=== PATIENT | male | born 1975 | race Caucasian/White ===

== ENCOUNTER 2018-01-23 13:02 | Inpatient (IN) | payer MEDICAID, SELFPAY ==
[2018-01-23] VITALS (10 sets, daily range): BP systolic 138–155; BP diastolic 76–101; PULSE 50–123; RESP 16–20; TEMP 36.6–36.8; O2SAT 97–98; BMI 27.3; BMI 26.6; BMI 26.7
[2018-01-23] MEDS: 0.9% Normal Saline 1,000 ML 250 ML IV (14:22)
[2018-01-23] MEDS: LORazepam 2 MG/ML Syringe 1 MG IV (14:24)
[2018-01-23] MEDS: Ondansetron 4 MG/2 ML Vial IV (14:24)
[2018-01-23 14:42] LABS: Absolute Lymphocyte Count 2.05 X10^3/ul (0.83-4.51); Absolute Neutrophil Count 4.8 X10^3/uL (2.0-7.7); Basophil# 0.01 X10^3/uL; Basophil% 0.1 % (0-1); Eosinophil# 0.08 X10^3/uL; Eosinophils% 1.1 % (0-5); Hematocrit 39.5 % (40-54); Hemoglobin 14.1 g/dl (13.0-16.5); Lymphocyte # 2.05 X10^3/ul (4.0); Lymphocyte % 28.1 % (19-41); Mean Corp Hgb Conc 35.7 g/gl (32-36); Mean Corpuscular Hgb 32.8 pg (27.0-32.0); Mean Corpuscular Volume 91.9 fL (80-94); Mean Platelet Vol. 10.9 fl (6.2-12.0); Monocyte% 4.1 % (0-10); Neutrophil # 4.84 X10^3/uL (2.7-7.7); Neutrophil % 66.5 % (47-70); POSITIVE COUNT NO; POSITIVE DIFFERENTIAL NO; POSITIVE MORPHOLOGY NO; Platelet Count 185 K/mm3 (150-450); RBC Distribution Width CV 13.3 % (11.6-14.6); RBC Distribution Width SD 44.8 fl (35.1-43.9); White Blood Count 7.3 K/mm3 (4.4-11.0)
[2018-01-23 15:05] LABS: Anion Gap 13 (5-15); BUN 1 mg/dL (7-18); BUN/Creat Ratio 1.8 RATIO (10-20); Calcium,Total 8.3 mg/dL (8.5-10.1); Chloride 92 mmol/L (98-107); Creatinine, Serum 0.54 mg/dL (0.70-1.30); EST Glomerular Filtration Rate 176 mL/min (>60); Est Glom Filt Rate - Afr Amer 213 mL/min (>60); Glucose 84 mg/dL (74-106); Potassium 3.9 mmol/L (3.5-5.1); Sodium Level 130 mmol/L (136-145)
[2018-01-23 15:28] LABS: Amphetamine Urine VISTA NEGATIVE (<1000 ng/mL); Barbiturate Urine VISTA NEGATIVE (< 200 ng/mL); Benzodiazepine Urine VISTA NEGATIVE (< 200 ng/mL); Cocaine Urine VISTA NEGATIVE (< 300 ng/mL); Ecstacy Urine VISTA NEGATIVE (< 500 ng/mL); Methadone Urine VISTA NEGATIVE (< 300 ng/mL); PCP Urine VISTA NEGATIVE (< 25 ng/mL); THC Urine VISTA NEGATIVE (< 50 ng/mL); Vista UDS pH Range 6
--- NOTE | 2018-01-23 16:58 | ED.VISSUMM ---
- ER Visit Summary Date of Service: 01/23/18 Chief Complaint: Alcohol detox History of Present Illness: The patient is a 43 M with history of heavy alcohol use who presents requesting alcohol detox. Patient has been looking in [place] and [place] for a detox center and he and his family state that he spoke with Pratima yesterday from [facility], who told him that he could come be admitted for that program. Patient last drank approximately 8 hours prior to arrival and is complaining of nausea, vomiting, tremors, anxiety, fullness and pressure in his head. He denies any history of withdrawal seizures. He attempted detox 1 year ago. He normally drinks 15-30 beers daily. He denies any suicidal ideation. He denies any other substance use. He does use tobacco. Physical Examination: Vital signs: afebrile, hypertension and tachycardia, no hypoxia on room air General: well nourished, well developed, being in bed, no distress but appears anxious Skin: warm, moist palms, no rash, no pallor HEENT: normocephalic and atraumatic; PERRL, EOMI, moist mucous membranes Cardiovascular: Tachycardic rate and rhythm without murmurs, no peripheral edema, 2+ pulses all distal extremities Respiratory: No increased work of breathing, lungs are clear to auscultation bilaterally, no rales, rhonchi or wheezing Abdominal: Abdomen is soft, nontender with normoactive bowel sounds, no guarding or rebound, no masses MSK: Moves all extremities, no deformities, normal strength in the hands tremulous on extension Neuro: Awake and alert, oriented ?4. No facial droop, sensation and motor function intact and symmetric Test Results: Abnormal Lab Results 01/23/18 01/23/18 01/23/18 14:17 14:17 14:17 WBC 7.3 RBC 4.30 L Hgb 14.1 Hct 39.5 L MCV 91.9 MCH 32.8 H MCHC 35.7 RDW 13.3 RDW Differential 44.8 H Plt Count 185 MPV 10.9 Immature Gran % (Auto) 0.100 Neut % (Auto) 66.5 Lymph % (Auto) 28.1 [place] % (Auto) 4.1 Eos % (Auto) 1.1 Baso % (Auto) 0.1 Absolute Neuts (auto) 4.8 Absolute Lymphs (auto) 2.05 Total Counted Not Reportable Sodium 130 L Potassium 3.9 Chloride 92 L Carbon Dioxide 25.0 Anion Gap 13 BUN 1 L Creatinine 0.54 L Estim Creat Clear Calc 195.60 Est GFR (MDRD) Af Amer 213 Est GFR (MDRD) Non-Af 176 BUN/Creatinine Ratio 1.8 L Glucose 84 Calcium 8.3 L Urine Opiates Screen Urine Methadone Screen Ur Barbiturates Screen Ur Phencyclidine Scrn Ur Amphetamines Screen U Methamphetamin-MDMA U Benzodiazepines Scrn Urine Cocaine Screen U Cannabinoids Screen Ur Drug Screen Comment Ethyl Alcohol 150.0 01/23/18 14:24 WBC RBC Hgb Hct MCV MCH MCHC RDW RDW Differential Plt Count MPV Immature Gran % (Auto) Neut % (Auto) Lymph % (Auto) [place] % (Auto) Eos % (Auto) Baso % (Auto) Absolute Neuts (auto) Absolute Lymphs (auto) Total Counted Sodium Potassium Chloride Carbon Dioxide Anion Gap BUN Creatinine Estim Creat Clear Calc Est GFR (MDRD) Af Amer Est GFR (MDRD) Non-Af BUN/Creatinine Ratio Glucose Calcium Urine Opiates Screen NEGATIVE Urine Methadone Screen NEGATIVE Ur Barbiturates Screen NEGATIVE Ur Phencyclidine Scrn NEGATIVE Ur Amphetamines Screen NEGATIVE U Methamphetamin-MDMA NEGATIVE U Benzodiazepines Scrn NEGATIVE Urine Cocaine Screen NEGATIVE U Cannabinoids Screen NEGATIVE Ur Drug Screen Comment Ethyl Alcohol Emergency Department Course and Treatment: Patient has a CIWA of 23. He was given IV hydration, Ativan and Zofran for symptomatic relief. He had some improvement in his symptoms. Screening labs were performed showing an ethanol level of 145. Tox screen negative. Patient had mild hyponatremia 130. Otherwise labs unremarkable. Patient was discussed with the hospitalist for admission for symptomatic control and alcohol detox in the [facility]. Treatment Plan: [] Disposition: [] Impression:: Medical screening for alcohol detox; acute alcohol withdrawal This note was generated with [employer] dictation software. It may contain incorrect words, spelling, and punctuation that were not noted in review of the chart prior to signing ED Disposition - Plan for ED Patient: Chief Complaint: Subst Abuse Referrals: Care Physician,No Primary [Primary Care Provider] -
--- NOTE | 2018-01-23 17:02 | HP.PCM_ITS ---
Problem List (1) ETOH abuse Status: Acute (2) Tobacco use Status: Acute (3) Overweight (BMI 25.0-29.9) Status: Acute (4) Acute alcohol withdrawal Status: Acute (5) Hyponatremia Status: Acute History of Present Illness Date of Admission: 01/23/18 Chief Complaint: Acute EtOH Withdrawal The patient is a 43 y/o M w/ PMHx: Tobacco use (1.5-2 ppd), EtOH Abuse (15-30 cans beer per day) who presents to the [facility] on 01/23/18 w/ noted acute EtOH withdrawal, onset starting mid-day following last EtOH intake 01/23/18 AM with onset of nausea, tremors, agitation, tactile disturbances. Patient interested in attaining sober status. In the ED work-up included T 98.3, HR 123-->92, BP 144/91, RR 18, 98% on RA, CBC unremarkable, BMP Na 130, Chl 92, BUN/Cr 1/0.54, glucose 84, UDS negative, EtOH level 150. In the ED patient initial CIWA per ED physician 23. Patient notes sxs improvement following IV ativan administration. Patient and family present noted that he had called [facility] and had been directed to come for treatment. The ED physician noted completing the chart for [facility] admission and only irregular was insurance but patient and family noted they were directed per [facility], giving correct names, to come for treatment. Past Medical History Allergies No Known Allergies Allergy (Verified 01/23/18 13:03) Home Medications: Ambulatory Orders Medication Instructions Recorded NK [NK] 01/23/18 Smoking Status: Current every day smoker Review of Systems Constitutional: Reports: Anorexia, Malaise, Weakness, Fatigue. Denies: Chills, Fever, Weight Change HEENT: Denies: Head Aches, Sinus Congestion, Sinus Drainage Cardiovascular: Denies: Chest Pain, Palpitations Respiratory: Denies: Cough, Shortness of breath at rest, Sputum production Gastrointestinal: Reports: Nausea. Denies: Abdominal Pain, Vomiting Genitourinary: Denies: Dysuria Musculoskeletal: Denies: Joint Pain, Joint Tenderness Skin: Denies: Rash, Wounds Neurological: Reports: Tremor. Denies: Focal weakness, Numbness, Tingling Psychiatric: Reports: Depression, - - Tactile disturbances.. Denies: Anxiety, Homicidal Ideations, Suicidal Ideations Hematologic/ Lymphatic: Denies: Easy Bruising, Easy Bleeding VTE Information - Inpt Only VTE Present on Admission: No VTE Mechan Device Prophylaxis: SCD's VTE Pharm Prophylaxis ordered?: No Reason prophylaxis not ordered:: Treatment Not Indicated Patient Problems: Active and Suspected Problems ETOH abuse (Acute) Tobacco use (Acute) Overweight (BMI 25.0-29.9) (Acute) Acute alcohol withdrawal (Acute) Hyponatremia (Acute) Subjective: Seated upright in the ED bed, currently appears improved from initial ED report , recent ativan administration. Objective: Physical Examination: General: awake, alert, oriented x 3 and cooperative, seated upright in the ED bed in no apparent distress. Skin: normal color, turgor, no icterus, cyanosis. HEENT: AT/NC, EOMI, PERRLA, mildly dry MM, no carotid bruits or JVD noted, mild BL scleral injection noted. Lungs: CTA bilaterally, moderate effort, mild decrease BL bases, no rales, ronchi or wheezing. Heart: Regular rate and rhythm; no gallop, rub audible. Abdomen: soft, overweight, NTTP, ND, normal BS, mild HM. Extremities: no cyanosis, clubbing, or edema. Neurological: patient awake, alert, oriented x 3; cognitive function intact; pupils equally reactive to light and accomodation; cranial nerves II-XII grossly normal, moving all 4 extremities, no focal deficits, strength mildly globally decreased secondary to acute presentation, no current tremors apparent. Psychiatric: affect appears flat, fatigued, no acute evidence of depressive or anxiety feelings. - Physical Exam Vital Signs Temp Pulse Resp BP Pulse Ox 98.3 F 100 18 139/92 H 98 01/23/18 13:03 01/23/18 16:00 01/23/18 16:00 01/23/18 16:00 01/23/18 16:00 Oxygen Delivery Method Room Air Weight: 201 lb 11.567 oz Body Mass Index (BMI) 27.3 Laboratory Tests Past 24 Hrs 01/23/18 01/23/18 01/23/18 14:17 14:17 14:17 WBC 7.3 RBC 4.30 L Hgb 14.1 Hct 39.5 L MCV 91.9 MCH 32.8 H MCHC 35.7 RDW 13.3 RDW Differential 44.8 H Plt Count 185 MPV 10.9 Immature Gran % (Auto) 0.100 Neut % (Auto) 66.5 Lymph % (Auto) 28.1 [place] % (Auto) 4.1 Eos % (Auto) 1.1 Baso % (Auto) 0.1 Absolute Neuts (auto) 4.8 Absolute Lymphs (auto) 2.05 Total Counted Not Reportable Sodium 130 L Potassium 3.9 Chloride 92 L Carbon Dioxide 25.0 Anion Gap 13 BUN 1 L Creatinine 0.54 L Estim Creat Clear Calc 195.60 Est GFR (MDRD) Af Amer 213 Est GFR (MDRD) Non-Af 176 BUN/Creatinine Ratio 1.8 L Glucose 84 Calcium 8.3 L Urine Opiates Screen Urine Methadone Screen Ur Barbiturates Screen Ur Phencyclidine Scrn Ur Amphetamines Screen U Methamphetamin-MDMA U Benzodiazepines Scrn Urine Cocaine Screen U Cannabinoids Screen Ur Drug Screen Comment Ethyl Alcohol 150.0 01/23/18 14:24 WBC RBC Hgb Hct MCV MCH MCHC RDW RDW Differential Plt Count MPV Immature Gran % (Auto) Neut % (Auto) Lymph % (Auto) [place] % (Auto) Eos % (Auto) Baso % (Auto) Absolute Neuts (auto) Absolute Lymphs (auto) Total Counted Sodium Potassium Chloride Carbon Dioxide Anion Gap BUN Creatinine Estim Creat Clear Calc Est GFR (MDRD) Af Amer Est GFR (MDRD) Non-Af BUN/Creatinine Ratio Glucose Calcium Urine Opiates Screen NEGATIVE Urine Methadone Screen NEGATIVE Ur Barbiturates Screen NEGATIVE Ur Phencyclidine Scrn NEGATIVE Ur Amphetamines Screen NEGATIVE U Methamphetamin-MDMA NEGATIVE U Benzodiazepines Scrn NEGATIVE Urine Cocaine Screen NEGATIVE U Cannabinoids Screen NEGATIVE Ur Drug Screen Comment Ethyl Alcohol Assessment/Plan Active and Suspected Problems ETOH abuse (Acute) Tobacco use (Acute) Overweight (BMI 25.0-29.9) (Acute) Acute alcohol withdrawal (Acute) Hyponatremia (Acute) The patient is a 43 y/o M w/ PMHx: Tobacco use (1.5-2 ppd), EtOH Abuse (15-30 cans beer per day) who presents to the [facility] on 01/23/18 w/ noted acute EtOH withdrawal, onset starting mid-day following last EtOH intake 01/23/18 AM with onset of nausea, tremors, agitation, tactile disturbances. (1) Acute EtOH Withdrawal: Will admit to [facility] on telemetry, obtain routine labs including CBC, CMP, urine for drug screen, urinalysis, serum lipase, routine EKG and will initiate and continue on [facility] service protocol with taper course of ativan, as needed Seroquel, Catapres, Bentyl, Vistaril, IV fluids, IV antiemetics, Tylenol as needed for pain. Once patient clinically improved and completion of taper nearing will plan [facility] assistance for transition to next level of rehabilitation care. Mag, phos pending. Maintain on CIWA protocol. (2) Elevated BP without HTN Dx: Elevated BP upon ED presentation, will continue treatment of #1 and if remains above goal will initiate oral therapy, PRN hydralazine. (3) Hyponatremia, Suspected Chronic: Likely secondary to EtOH Abuse, beer potomania, gently hydrating as noted x 1L and then HLIV. (4) Tobacco Abuse: Encouraged cessation, inpatient consultation per RT, NR if desired. (5) Insomnia: q HS trazodone, melatonin and PRN q 6 hour seroquel as noted above. (6) GERD: Famotidine. (7) DVT Prophylaxis: EILEEN, low risk, ambulation. Code Visit Inpatient E&M: 15078 Init Hosp L3
--- NOTE | 2018-01-23 17:02 | ED.DCSUM_ITS ---
- ER Visit Summary Date of Service: 01/23/18 Chief Complaint: Alcohol detox History of Present Illness: The patient is a 43 M with history of heavy alcohol use who presents requesting alcohol detox. Patient has been looking in [place] and [place] for a detox center and he and his family state that he spoke with Pratima yesterday from [facility], who told him that he could come be admitted for that program. Patient last drank approximately 8 hours prior to arrival and is complaining of nausea, vomiting, tremors, anxiety, fullness and pressure in his head. He denies any history of withdrawal seizures. He attempted detox 1 year ago. He normally drinks 15-30 beers daily. He denies any suicidal ideation. He denies any other substance use. He does use tobacco. Physical Examination: Vital signs: afebrile, hypertension and tachycardia, no hypoxia on room air General: well nourished, well developed, being in bed, no distress but appears anxious Skin: warm, moist palms, no rash, no pallor HEENT: normocephalic and atraumatic; PERRL, EOMI, moist mucous membranes Cardiovascular: Tachycardic rate and rhythm without murmurs, no peripheral edema , 2+ pulses all distal extremities Respiratory: No increased work of breathing, lungs are clear to auscultation bilaterally, no rales, rhonchi or wheezing Abdominal: Abdomen is soft, nontender with normoactive bowel sounds, no guarding or rebound, no masses MSK: Moves all extremities, no deformities, normal strength in the hands tremulous on extension Neuro: Awake and alert, oriented ?4. No facial droop, sensation and motor function intact and symmetric Test Results: Abnormal Lab Results 01/23/18 01/23/18 01/23/18 14:17 14:17 14:17 WBC 7.3 RBC 4.30 L Hgb 14.1 Hct 39.5 L MCV 91.9 MCH 32.8 H MCHC 35.7 RDW 13.3 RDW Differential 44.8 H Plt Count 185 MPV 10.9 Immature Gran % (Auto) 0.100 Neut % (Auto) 66.5 Lymph % (Auto) 28.1 [place] % (Auto) 4.1 Eos % (Auto) 1.1 Baso % (Auto) 0.1 Absolute Neuts (auto) 4.8 Absolute Lymphs (auto) 2.05 Total Counted Not Reportable Sodium 130 L Potassium 3.9 Chloride 92 L Carbon Dioxide 25.0 Anion Gap 13 BUN 1 L Creatinine 0.54 L Estim Creat Clear Calc 195.60 Est GFR (MDRD) Af Amer 213 Est GFR (MDRD) Non-Af 176 BUN/Creatinine Ratio 1.8 L Glucose 84 Calcium 8.3 L Urine Opiates Screen Urine Methadone Screen Ur Barbiturates Screen Ur Phencyclidine Scrn Ur Amphetamines Screen U Methamphetamin-MDMA U Benzodiazepines Scrn Urine Cocaine Screen U Cannabinoids Screen Ur Drug Screen Comment Ethyl Alcohol 150.0 01/23/18 14:24 WBC RBC Hgb Hct MCV MCH MCHC RDW RDW Differential Plt Count MPV Immature Gran % (Auto) Neut % (Auto) Lymph % (Auto) [place] % (Auto) Eos % (Auto) Baso % (Auto) Absolute Neuts (auto) Absolute Lymphs (auto) Total Counted Sodium Potassium Chloride Carbon Dioxide Anion Gap BUN Creatinine Estim Creat Clear Calc Est GFR (MDRD) Af Amer Est GFR (MDRD) Non-Af BUN/Creatinine Ratio Glucose Calcium Urine Opiates Screen NEGATIVE Urine Methadone Screen NEGATIVE Ur Barbiturates Screen NEGATIVE Ur Phencyclidine Scrn NEGATIVE Ur Amphetamines Screen NEGATIVE U Methamphetamin-MDMA NEGATIVE U Benzodiazepines Scrn NEGATIVE Urine Cocaine Screen NEGATIVE U Cannabinoids Screen NEGATIVE Ur Drug Screen Comment Ethyl Alcohol Emergency Department Course and Treatment: Patient has a CIWA of 23. He was given IV hydration, Ativan and Zofran for symptomatic relief. He had some improvement in his symptoms. Screening labs were performed showing an ethanol level of 145. Tox screen negative. Patient had mild hyponatremia 130. Otherwise labs unremarkable. Patient was discussed with the hospitalist for admission for symptomatic control and alcohol detox in the [facility] program. Treatment Plan: [] Disposition: [] Impression:: Medical screening for alcohol detox; acute alcohol withdrawal This note was generated with [employer] dictation software. It may contain incorrect words, spelling, and punctuation that were not noted in review of the chart prior to signing ED Disposition - Plan for ED Patient: Chief Complaint: Subst Abuse Referrals: Care Physician,No Primary [Primary Care Provider] -
[2018-01-23 18:02] LABS: Magnesium 2.1 mg/dL (1.6-2.6); Phosphorus 3.1 mg/dL (2.5-4.9)
[2018-01-23] MEDS: Ondansetron ODT 4 MG Tablet PO (18:58)
[2018-01-23] MEDS: Methocarbamol 750 MG Tablet PO (18:58)
[2018-01-23] MEDS: Dicyclomine 10 MG Capsule 20 MG PO (18:59)
[2018-01-23] MEDS: QUEtiapine 25 MG Tablet PO (18:59)
[2018-01-23] MEDS: cloNIDine HCl 0.1 MG Tablet PO ×2 (18:59→22:20)
[2018-01-23] MEDS: chlordiazePOXIDE 25 MG Capsule PO (18:59)
[2018-01-23 19:15] LABS: AST(SGOT) 40 U/L (15-37); Alanine Aminotransfer ALT/SGPT 36 U/L (16-61); Albumin, Serum 3.9 g/dL (3.2-5.0); Alkaline Phosphatase 88 U/L (45-117); Bilirubin, Direct 0.11 mg/dL (0.00-0.30); Globulin 4.1 g/dL (2.2-4.2)
[2018-01-23] MEDS: Lactated Ringers 1,000 ML 125 ML IV (20:55)
[2018-01-23] MEDS: MELATONIN 10 MG TABLET PO (22:20)
[2018-01-23] MEDS: traZODone 50 MG Tablet PO (22:20)
[2018-01-23] MEDS: Famotidine 20 MG Tablet PO (22:20)
[2018-01-24] MEDS: chlordiazePOXIDE 25 MG Capsule PO ×4 (00:47→20:14)
[2018-01-24 02:23] VITALS: BP 100/65; PULSE 68; RESP 18; TEMP 36.5
[2018-01-24] MEDS: cloNIDine HCl 0.1 MG Tablet PO ×5 (02:31→17:34)
[2018-01-24 06:34] VITALS: BP 118/75; PULSE 83; RESP 18; TEMP 36.6
--- NOTE | 2018-01-24 07:15 | PN_ITS ---
Patient Problems: Active and Suspected Problems ETOH abuse (Acute) Tobacco use (Acute) Overweight (BMI 25.0-29.9) (Acute) Acute alcohol withdrawal (Acute) Hyponatremia (Acute) Subjective: The patient is a 43 y/o M w/ PMHx: Tobacco use (1.5-2 ppd), EtOH Abuse (15-30 cans beer per day) who presents to the [facility] on 01/23/18 w/ noted acute EtOH withdrawal, onset starting mid-day following last EtOH intake 01/23/18 AM with onset of nausea, tremors, agitation, tactile disturbances. Admitted to [place], initiated and continued on [facility] service protocol with taper course of ativan, as needed Seroquel, Catapres, Bentyl, Vistaril, IV fluids, IV antiemetics, Tylenol as needed for pain. Once patient clinically improved and completion of taper nearing will plan [facility] assistance for transition to next level of rehabilitation care. Mag, phos both normal levels. Maintain on CIWA protocol. Will need [facility] assessment Thursday given admission over the weekend, again, patient and family noted [facility] recommendation to present to [facility] for admission, especially given insurance variation. Elevated BP upon ED presentation, will continue treatment of #1, improved since admission, normal BP , continue to monitor. PRN hydralazine. Hyponatremia, Suspected Chronic, Likely secondary to EtOH Abuse, beer potomania, gently hydrating as noted x 1L and then HLIV. Elevated LFT, Chronic, secondary to ETOH Abuse. Hepatic profile obtained following admission, AST/ALT 40/36, patient reports elevation prior. Patient with no acute events overnight per self and per nursing report. He states he slept well which is the first 90s had sleep and several. He is up in the room moving and organizing things this morning, appearing very comfortable. Notes symptoms have remarkably improved and still feels as though his he has a mild cold but otherwise doing well. patient denies fevers, chills, nausea, emesis, abdominal pain, chest pain or dyspnea. Objective: Physical Examination: General: awake, alert, oriented x 3 and cooperative, seated upright bed in no apparent distress, initially walking in the room. Skin: normal color, turgor, no icterus, cyanosis. HEENT: AT/NC, EOMI, PERRLA, improved MMM. Lungs: CTA bilaterally, moderate effort, mild decrease BL bases, no rales, ronchi or wheezing. Heart: Regular rate and rhythm; no gallop, rub audible. Abdomen: soft, overweight, NTTP, ND, normal BS. Extremities: no cyanosis, clubbing, or edema. Neurological: patient awake, alert, oriented x 3; cognitive function intact; pupils equally reactive to light and accomodation; cranial nerves II-XII grossly normal, moving all 4 extremities, no focal deficits, strength improved, mildly globally decreased. Psychiatric: affect appears improved, normalized, no acute evidence of depressive or anxiety feelings. Vitals/I&O's: Vital Signs Temp Pulse Resp BP Pulse Ox 97.8 F 83 18 118/75 97 01/24/18 06:34 01/24/18 06:34 01/24/18 06:34 01/24/18 06:34 01/23/18 17:10 Oxygen Delivery Method Room Air Weight: 196 lb 13.965 oz Body Mass Index (BMI) 26.6 Intake and Output for Last 24 Hours 01/22/18 01/23/18 01/24/18 23:59 23:59 23:59 Intake Total 200 / 200 Output Total 550 / 550 Balance -350 / -350 Current Medications Acetaminophen (Tylenol) 500 mg PO Q4H PRN PRN PRN Reason: Temp > 100.4 F Al Hydroxide/Mg Hydroxide (Mylanta Ii) 30 ml PO Q6H PRN PRN PRN Reason: dyspesia Bisacodyl (Dulcolax) 10 mg RECTAL DAILY PRN PRN Reason: Constipation Chlordiazepoxide (Librium) 50 mg PO Q6H [facility] PRN Reason: Taper Stop: 01/26/18 19:59 Last Admin: 01/24/18 06:36 Dose: 50 mg Clonidine (Catapres) 0.1 mg PO Q4 TING Last Admin: 01/24/18 06:36 Dose: 0.1 mg Dicyclomine HCl (Bentyl) 20 mg PO Q6H PRN PRN PRN Reason: abdominal discomfort Last Admin: 01/23/18 18:59 Dose: 20 mg Famotidine (Pepcid) 20 mg PO BID [facility] Last Admin: 01/23/18 22:20 Dose: 20 mg Folic Acid (Folic Acid) 1 mg PO DAILY@0800 [facility] Hydralazine HCl (Apresoline) 10 mg IV Q4H PRN PRN PRN Reason: SBP > 160 Hydroxyzine Pamoate (Vistaril) 50 mg PO Q6H PRN PRN PRN Reason: Mild Anxiety (score 1/3) Ibuprofen (Motrin) 600 mg PO Q8H PRN PRN PRN Reason: Mild-Moderate Pain (1-5/10) Loperamide HCl (Imodium) 2 - 4 mg PO UD PRN PRN Reason: LOOSE STOOLS Melatonin (Melatonin) 10 mg PO QHS [facility] Last Admin: 01/23/18 22:20 Dose: 10 mg Methocarbamol (Methocarbamol) 750 mg PO Q6H PRN PRN PRN Reason: Muscle Aches Last Admin: 01/23/18 18:58 Dose: 750 mg Multivitamins/Minerals (Multivitamin With Minerals) [facility] Nicotine Polacrilex ([place] Nicotine (Pbkc)) 4 mg PO Q2H PRN PRN PRN Reason: Nicotine Craving Ondansetron HCl (Zofran Odt) 4 mg PO Q6H PRN PRN PRN Reason: NAUSEA Last Admin: 01/23/18 18:58 Dose: 4 mg Pramipexole Dihydrochloride (Mirapex) 0.25 mg PO Q12H PRN PRN PRN Reason: Restless legs Quetiapine Fumarate (Seroquel) 25 mg PO Q6H PRN PRN PRN Reason: anxiety, insomnia Last Admin: 01/23/18 18:59 Dose: 25 mg Senna (Senokot) 1 tablet PO QHS PRN PRN Reason: Constipation Sodium Chloride () 5 - 30 ml IV UD PRN PRN Reason: SALINE FLUSH Thiamine HCl (Vitamin B1) [facility] Trazodone HCl (Desyrel) 50 mg PO QHS [facility] Last Admin: 01/23/18 22:20 Dose: 50 mg Assessment/Plan Active and Suspected Problems ETOH abuse (Acute) Tobacco use (Acute) Overweight (BMI 25.0-29.9) (Acute) Acute alcohol withdrawal (Acute) Hyponatremia (Acute) The patient is a 43 y/o M w/ PMHx: Tobacco use (1.5-2 ppd), EtOH Abuse (15-30 cans beer per day) who presents to the [facility] on 01/23/18 w/ noted acute EtOH withdrawal, onset starting mid-day following last EtOH intake 01/23/18 AM with onset of nausea, tremors, agitation, tactile disturbances. (1) Acute EtOH Withdrawal: Admitted to [place], routine labs obtained in the ED, added mag/phos/hepatic profile as not obtained, not marked as noted, initiated and continued on [facility] service protocol with taper course of ativan, as needed Seroquel, Catapres, Bentyl, Vistaril, IV fluids, IV antiemetics, Tylenol as needed for pain. Once patient clinically improved and completion of taper nearing will plan [facility] assistance for transition to next level of rehabilitation care. Mag, phos both normal levels. Maintain on CIWA protocol. Will need [facility] assessment Thursday given admission over the weekend, again, patient and family noted [facility] recommendation to present to [facility] for admission, especially given insurance variation. (2) Elevated BP without HTN Dx: Elevated BP upon ED presentation, will continue treatment of #1, improved since admission, normal BP, continue to monitor. PRN hydralazine. (3) Hyponatremia, Suspected Chronic: Likely secondary to EtOH Abuse, beer potomania, gently hydrating as noted x 1L and then HLIV. (4) Tobacco Abuse: Encouraged cessation, inpatient consultation per RT, NR if desired. (5) Insomnia: q HS trazodone, melatonin and PRN q 6 hour seroquel as noted above. (6) GERD: Famotidine. (7) Elevated LFT, Chronic: Secondary to ETOH Abuse. Hepatic profile obtained following admission, AST/ALT 40/36, patient reports elevation prior. (8) DVT Prophylaxis: EILEEN, low risk, ambulation. Code Visit Inpatient E&M: 89328 Subs Hosp L2
[2018-01-24 08:14] VITALS: BP 113/66; PULSE 89; RESP 18; TEMP 36.7
[2018-01-24] MEDS: Famotidine 20 MG Tablet PO ×2 (08:24→22:12)
[2018-01-24] MEDS: Thiamine Hydrochloride 100 MG Tablet PO (08:24)
[2018-01-24] MEDS: Multivitamins,Ther W-Minerals Tablet 1 TABLET PO (08:24)
[2018-01-24] MEDS: Methocarbamol 750 MG Tablet PO (08:25)
[2018-01-24] MEDS: Folic Acid 1 MG Tablet PO (08:25)
[2018-01-24 11:59] VITALS: BP 112/80; PULSE 66; RESP 18; TEMP 36.3
[2018-01-24] MEDS: QUEtiapine 25 MG Tablet PO (12:09)
[2018-01-24 17:28] VITALS: BP 119/80; PULSE 69; RESP 16; TEMP 36.5
[2018-01-24] MEDS: Pramipexole Di-HCl 0.25 MG Tablet PO (17:34)
[2018-01-24 22:06] VITALS: BP 140/90; PULSE 61; RESP 18; TEMP 36.7
[2018-01-24] MEDS: MELATONIN 10 MG TABLET PO (22:12)
[2018-01-24] MEDS: traZODone 50 MG Tablet PO (22:12)
[2018-01-25] VITALS (9 sets, daily range): BP systolic 125–146; BP diastolic 78–100; PULSE 58–82; RESP 16–18; TEMP 36.3–36.6; O2SAT 98–100
[2018-01-25] MEDS: chlordiazePOXIDE 25 MG Capsule PO (04:03)
[2018-01-25] MEDS: Famotidine 20 MG Tablet PO ×2 (08:28→21:11)
[2018-01-25] MEDS: Folic Acid 1 MG Tablet PO (08:28)
[2018-01-25] MEDS: Thiamine Hydrochloride 100 MG Tablet PO (08:29)
[2018-01-25] MEDS: cloNIDine HCl 0.1 MG Tablet PO ×4 (08:29→21:11)
[2018-01-25] MEDS: Multivitamins,Ther W-Minerals Tablet 1 TABLET PO (08:29)
--- NOTE | 2018-01-25 09:27 | PCM.PN.HOSP ---
Patient Problems: Active and Suspected Problems ETOH abuse (Acute) Tobacco use (Acute) Overweight (BMI 25.0-29.9) (Acute) Acute alcohol withdrawal (Acute) Hyponatremia (Acute) Subjective: Patient was seen and examined. No acute events overnight. Vitals reviewed are stable. Denies any nausea or vomiting or tremors or dizziness or palpitations. Seen by the [facility] program account retention representative. He will be enrolled in the [facility] program. Patient states after discharge he hopes to follow-up with counseling and AA groups. Vitals/I&O's: Vital Signs Temp Pulse Resp BP Pulse Ox 97.9 F 69 18 145/97 H 98 01/25/18 08:26 01/25/18 08:26 01/25/18 08:26 01/25/18 08:26 01/25/18 08:24 Oxygen Delivery Method Room Air Weight: 89.3 kg Body Mass Index (BMI) 26.6 Intake and Output for Last 24 Hours 01/23/18 01/24/18 01/25/18 23:59 23:59 23:59 Intake Total 200 / 200 Output Total 550 / 550 Balance -350 / -350 General: Alert, Oriented x3, Cooperative, No apparent distress HEENT: Atraumatic, PERRLA, EOMI, Normocephalic Oral: Moist Mucosa Neck: Supple Lungs: Clear to auscultation, Normal air movement Cardiovascular: Regular rate, Regular Rhythm, Normal S1, Normal S2, No murmurs Abdomen: Bowel Sounds Present, Soft, Non Tender, Non-Distended Extremities: No edema, Capillary Refill Less than 3 Seconds Skin: No rashes, No breakdown Musculoskeletal: No Tenderness to Palpation of Joints or Extremities Lymphatic: No Cervical, Supraclavicular, or Inguinal Adenopathy Neurological: Cranial nerves II-XII grossly intact, Neuro grossly intact Psych/Mental Status: Normal Affect, Appropriate Current Medications Acetaminophen (Tylenol) 500 mg PO Q4H PRN PRN PRN Reason: Temp > 100.4 F Al Hydroxide/Mg Hydroxide (Mylanta Ii) 30 ml PO Q6H PRN PRN PRN Reason: dyspesia Bisacodyl (Dulcolax) 10 mg RECTAL DAILY PRN PRN Reason: Constipation Chlordiazepoxide (Librium) 50 mg PO Q8H TING PRN Reason: Taper Stop: 01/26/18 19:59 Last Admin: 01/25/18 04:03 Dose: 50 mg Clonidine (Catapres) 0.1 mg PO Q4 [facility] Last Admin: 01/25/18 08:29 Dose: 0.1 mg Dicyclomine HCl (Bentyl) 20 mg PO Q6H PRN PRN PRN Reason: abdominal discomfort Last Admin: 01/23/18 18:59 Dose: 20 mg Famotidine (Pepcid) 20 mg PO BID [facility] Last Admin: 01/25/18 08:28 Dose: 20 mg Folic Acid (Folic Acid) 1 mg PO DAILY@0800 [facility] Last Admin: 01/25/18 08:28 Dose: 1 mg Hydralazine HCl (Apresoline) 10 mg IV Q4H PRN PRN PRN Reason: SBP > 160 Hydroxyzine Pamoate (Vistaril) 50 mg PO Q6H PRN PRN PRN Reason: Mild Anxiety (score 1/3) Last Admin: 01/24/18 17:34 Dose: 50 mg Ibuprofen (Motrin) 600 mg PO Q8H PRN PRN PRN Reason: Mild-Moderate Pain (1-5/10) Loperamide HCl (Imodium) 2 - 4 mg PO UD PRN PRN Reason: LOOSE STOOLS Melatonin (Melatonin) 10 mg PO QHS [facility] Last Admin: 01/24/18 22:12 Dose: 10 mg Methocarbamol (Methocarbamol) 750 mg PO Q6H PRN PRN PRN Reason: Muscle Aches Last Admin: 01/24/18 08:25 Dose: 750 mg Multivitamins/Minerals ([facility] Minerals) [facility] Admin: 01/25/18 08:29 Dose: 1 tablet Nicotine (Nicoderm Cq (Pbkc)) 21 mg TRANSDERM. DAILY [facility] Last Admin: 01/25/18 08:28 Dose: 21 mg Nicotine Polacrilex (Rugby Nicotine (Pbkc)) 4 mg PO Q2H PRN PRN PRN Reason: Nicotine Craving Last Admin: 01/24/18 17:34 Dose: 4 mg Ondansetron HCl (Zofran Odt) 4 mg PO Q6H PRN PRN PRN Reason: NAUSEA Last Admin: 01/23/18 18:58 Dose: 4 mg Pramipexole Dihydrochloride (Mirapex) 0.25 mg PO Q12H PRN PRN PRN Reason: Restless legs Last Admin: 01/24/18 17:34 Dose: 0.25 mg Quetiapine Fumarate (Seroquel) 25 mg PO Q6H PRN PRN PRN Reason: anxiety, insomnia Last Admin: 01/24/18 12:09 Dose: 25 mg Senna (Senokot) 1 tablet PO QHS PRN PRN Reason: Constipation Sodium Chloride () 5 - 30 ml IV UD PRN PRN Reason: SALINE FLUSH Thiamine HCl (Vitamin B1) 100 mg PO DAILYCM [facility] Last Admin: 01/25/18 08:29 Dose: 100 mg Trazodone HCl (Desyrel) 50 mg PO QHS [facility] Last Admin: 01/24/18 22:12 Dose: 50 mg Assessment/Plan Active and Suspected Problems ETOH abuse (Acute) Tobacco use (Acute) Overweight (BMI 25.0-29.9) (Acute) Acute alcohol withdrawal (Acute) Hyponatremia (Acute) 43 y/o male with PMHx of Tobacco use, EtOH Abuse admitted on 01/23/18 with nausea, tremors, agitation, tactile disturbances and managed as acute EtOH withdrawal. Last alcohol use was 01/23/18 AM. 1. Acute EtOH Withdrawal, improving, CIWA score has been 0, on Librium withdrawal protocol, continue to monitor per [facility] protocol 2. Elevated BP without hypertension diagnosis, BP has been fluctuating with normal blood pressures the whole of yesterday, will continue to monitor 3. Hyponatremia, Suspected Chronic, likely secondary to EtOH Abuse, beer potomania, repeat BMP today 4. Nicotine use disorder, chronic, encouraged cessation, on nicotine patch and gum. 5. Insomnia 6. GERD, stable, on famotidine 7. DVT Prophylaxis: low risk, early frequent ambulation recommended Code Visit Inpatient E&M: 97109 Subs Hosp L2
[2018-01-25 11:02] LABS: Anion Gap 8 (5-15); BUN 3 mg/dL (7-18); BUN/Creat Ratio 3.8 RATIO (10-20); Calcium,Total 8.7 mg/dL (8.5-10.1); Chloride 100 mmol/L (98-107); Creatinine, Serum 0.79 mg/dL (0.70-1.30); EST Glomerular Filtration Rate 114 mL/min (>60); Est Glom Filt Rate - Afr Amer 138 mL/min (>60); Glucose 114 mg/dL (74-106); Potassium 4.1 mmol/L (3.5-5.1); Sodium Level 134 mmol/L (136-145)
--- NOTE | 2018-01-25 15:04 | CHAPLAIN ---
Type of Pastoral Visit _x__ Initial Visit ___ Follow-up Visit ___ On-call Visit ___ General Patient Visit ___ Spiritual Assessment ___ Family Conference ___ Bereavement ___ Rapid Response ___ Code Blue ___ Other (describe below) Pastoral Care Referral From _x__ Patient ___ Family ___ Nurse ___ Physician ___ Cop Breaker ___ Ear Nose Throat Physician ___ Other (describe below) Sacrament/Intervention _x__ Active listening ___ Anointing ___ Christianity ___ Bereavement ___ Communion ___ Hillary exploration ___ ___ Life review ___ Prayer ___ Reconciliation ___ Sacrament of Sick _x__ Supportive presence ___ Wedding ___ Other (describe below) Pastoral Comments
--- NOTE | 2018-01-25 15:31 | NURSING ---
Nursing compressed yeast supervisor informed this RN of family calling in stating that pt. was having thoughts of killing himself. This RN in room and assessed pt. Pt. denies thoughts of harming self/others and that he did not tell anyone that. States he only spoke with him mother this am about being discharged tomorrow. Pt. thinks it was his sister who called in because she is trying to make him stay longer then 3 nights. Encouraged pt. to notify us of any needs. multimedia producer, Engine House Helper, and Seasonal Greenery Bundler updated of situation.
[2018-01-25] MEDS: QUEtiapine 25 MG Tablet PO (21:10)
[2018-01-25] MEDS: traZODone 50 MG Tablet PO (21:11)
[2018-01-25] MEDS: MELATONIN 10 MG TABLET PO (21:11)
[2018-01-26] MEDS: cloNIDine HCl 0.1 MG Tablet PO ×2 (06:12→09:35)
[2018-01-26 06:15] VITALS: BP 130/88; PULSE 93; RESP 16; TEMP 36.7
--- NOTE | 2018-01-26 07:41 | PCM.DC ---
- Discharge Diagnoses Current Active Problems: Current Active and Chronic Problems ETOH abuse (Acute) Tobacco use (Acute) Overweight (BMI 25.0-29.9) (Acute) Acute alcohol withdrawal (Acute) Hyponatremia (Acute) Reason(s) for Visit for Discharge Instructions: Alcohol withdrawal You will use the following diet at home:: Regular Your food should be the consistency of: Regular Your liquids should be the consistency of: Regular/Thin Discharge Activity: Return to Normal Activity Additional Instructions: You are strongly advised to abstain from drinking and smoking. Allergies/Adverse Reactions: Allergies No Known Allergies Allergy (Verified 01/23/18 13:03) Medications to take at Discharge NK [NK] 01/23/18 Primary Care Physician: Care Physician,No Primary [Primary Care Provider] - Please follow up with your Primary Care Physician in: in 2 weeks Proposed Discharge Date: 01/26/18
--- NOTE | 2018-01-26 07:48 | DS.PCM_ITS ---
Discharge Date and Diagnosis - Problem List Patient Problems: Active and Suspected Problems ETOH abuse (Acute) Tobacco use (Acute) Overweight (BMI 25.0-29.9) (Acute) Acute alcohol withdrawal (Acute) Hyponatremia (Acute) Date of Admission: 01/23/18 Date of Discharge: 01/26/18 - Primary Discharge Diagnosis Active and Suspected Problems ETOH abuse (Acute) Tobacco use (Acute) Overweight (BMI 25.0-29.9) (Acute) Acute alcohol withdrawal (Acute) Hyponatremia (Acute) - Secondary Discharge Diagnosis Chronic alcohol use disorder Chronic nicotine use disorder Hyponatremia, likely related to alcohol Overweight Hospital Course and Treatment None Operations: None Procedures: None Summary of Care Provided: 43 y/o male with PMHx of Tobacco use, EtOH Abuse admitted on 01/23/18 with nausea , tremors, agitation, tactile disturbances and managed as acute EtOH withdrawal. Last alcohol use was 01/23/18 AM. 1. Acute EtOH Withdrawal, managed on Librium withdrawal protocol, improved with his CIWA scores. Patient will be staying with his sister and following up with AA meetings. 2. Elevated BP without hypertension diagnosis, BP has been fluctuating with normal blood pressures readings. It was controlled at the time of discharge. Will need to follow-up with primary care doctor in 2 weeks. 3. Hyponatremia, Suspected Chronic, likely secondary to EtOH Abuse, beer potomania, repeat sodium improved from 130 to 134. Needs a repeat in 1 week. 4. Nicotine use disorder, chronic, encouraged cessation, managed on nicotine patch and gum. 5. Insomnia 6. GERD Discharge Diet: No Restrictions Discharge Activity: Return to Normal Activity Home Medications: Medications to take at Discharge NK [NK] 01/23/18 Primary Care Physician: Care Physician,No Primary [Primary Care Provider] - Please follow up with your Primary Care Physician in: in 2 weeks Additional Instructions: You are strongly advised to abstain from drinking and smoking. Disposition: Home Minutes spent on discharge:: 25 Patient Condition:: Stable Meaningful Use Info Meaningful Use Diagnoses (Choose all that apply): None applicable Code Visit Inpatient E&M: 13572 Disch Hosp
[2018-01-26 08:01] VITALS: BP 126/77; PULSE 77; RESP 18; TEMP 36.7; O2SAT 100
[2018-01-26] MEDS: Multivitamins,Ther W-Minerals Tablet 1 TABLET PO (08:04)
[2018-01-26] MEDS: Thiamine Hydrochloride 100 MG Tablet PO (08:04)
[2018-01-26] MEDS: Folic Acid 1 MG Tablet PO (08:04)
[2018-01-26] MEDS: Famotidine 20 MG Tablet PO (09:35)
[2018-01-26 10:00] VITALS: BP 126/77; PULSE 77; RESP 18; TEMP 36.7
[2018-01-26 11:16] VITALS: BP 126/77; PULSE 77; RESP 18; TEMP 36.7; O2SAT 100
== END 2018-01-26 11:16 | disposition home or self-care (01) | DRG 434 ==
LOC: ED 16:19 → MS2 17:20
PROVIDERS: Admitting Provider Family Medicine; Emergency Provider Emergency Medicine; Visit Provider Internal Medicine
DX: F10.239 Alcohol dependence with withdrawal, unspecified (principal); E87.1 Hypo-osmolality and hyponatremia; F10.280 Alcohol dependence with alcohol-induced anxiety disorder; T51.0X1A Toxic effect of ethanol, accidental (unintentional), initial encounter; Y90.6 Blood alcohol level of 120-199 mg/100 ml; G25.2 Other specified forms of tremor; E66.3 Overweight; Z68.27 Body mass index [BMI] 27.0-27.9, adult; F17.200 Nicotine dependence, unspecified, uncomplicated; R03.0 Elevated blood-pressure reading, without diagnosis of hypertension; K21.9 Gastro-esophageal reflux disease without esophagitis; G47.00 Insomnia, unspecified; R94.5 Abnormal results of liver function studies
CPT/HCPCS: 36415; 80048; 80076; 80307; 80320; 83735; 84100; 85025; 99281; 99406; J7030; J7120; A4216; G0480; J2405